=== PATIENT | female | born 1980 | race Caucasian/White ===

== ENCOUNTER → 2019-04-08 | Outpatient (CLI) | payer OTHER ==
--- NOTE | 2019-04-08 09:28 | WOMENS IMAGING REPORT ---
EXAM DESCRIPTION: U/S ABDOMEN TOTAL COMPLETED DATE/TIME: 04/08/2019 9:16 am REASON FOR STUDY: K74.60 UNSPECIFIED CIRRHOSIS OF LIVER K74.60 UNSPECIFIED CIRRHOSIS OF LIVER COMPARISON: 10/02/2014 TECHNIQUE: Dynamic and static grayscale images acquired of the abdomen and recorded on PACS. Additio nal selected color Doppler and spectral images recorded. Note: Study does not meet criteria for complete doppler/duplex scan LIMITATIONS: Some structures nonvisualized. FINDINGS: PANCREAS: Nonvisualized LIVER: No focal mass. Coarsened Increased echogenicity. No ductal dilation. LIVER VASCULATURE: Normal directional flow of the main portal vein and hepatic veins. GALLBLADDER: Cholelithiasis with likely additional gallbladder sludge. No wall thickening (2 mm). N o pericholecystic fluid. ULTRASOUND-DETECTED BULLARD'S SIGN: Negative. INTRAHEPATIC DUCTS AND COMMON DUCT: CBD and intrahepatic ducts normal caliber. No filling defects. INFERIOR VENA CAVA: Normal flow. AORTA: No aneurysm. RIGHT KIDNEY: Measuring 9.7 cm. Normal echogenicity. No solid or suspicious masses. No hydrone phrosis. No calcifications. LEFT KIDNEY: Measuring 10.0 cm Normal echogenicity. No solid or suspicious masses. No hydronep hrosis. No calcifications. SPLEEN: Normal size measuring 11.3 cm. No solid masses. PERITONEAL AND PLEURAL SPACES: No ascites or effusions. OTHER: No other significant finding. IMPRESSION: 1. Cholelithiasis without secondary evidence of acute cholecystitis. 2. Hepatic steatosis. TECHNICAL DOCUMENTATION: JOB ID: [id number] [email or web address] All Rights Reserved Reading location - IP/workstation name: [email or web address]
== END ==
LOC: WI 08:35
PROVIDERS: ATTEND Internal Medicine Gastroenterology
DX: K74.60 Unspecified cirrhosis of liver (principal); K75.4 Autoimmune hepatitis; K80.20 Calculus of gallbladder without cholecystitis without obstruction; Z12.89 Encounter for screening for malignant neoplasm of other sites
CPT/HCPCS: 76700